=== PATIENT | male | born 1975 | race Hispanic/Latino ===

== ENCOUNTER → 2024-08-20 | Day surgery (SDC) | payer OTHER ==
[~2024-08-20] MED LIST: KETAMINE 50MG/5ML SYR ONE; LIDOCAINE HCL 2% LOCAL INJ 5 ML SDV VIAL INJ ONE; PROPOFOL IV EMULSION 10 MG/ML 20 ML VIAL ONE; PROPOFOL IV EMULSION 50 ML IV ONE; TRICOR145 MG PO
[2024-08-20] MEDS: LACTATED RINGER'S 1,000 ML ONE (07:03)
[2024-08-20 09:00] VITALS: TEMP 97.4
[2024-08-20 09:15] VITALS: BP 134/83; PULSE 74; RESP 16; O2SAT 96
== END | disposition home or self-care (01) ==
LOC: OR 06:34
PROVIDERS: ATTEND Internal Medicine Gastroenterology
DX: Z12.11 Encounter for screening for malignant neoplasm of colon (principal); D12.2 Benign neoplasm of ascending colon; K63.89 Other specified diseases of intestine; K64.8 Other hemorrhoids; E78.5 Hyperlipidemia, unspecified; F17.200 Nicotine dependence, unspecified, uncomplicated; Z01.810 Encounter for preprocedural cardiovascular examination; Z79.899 Other long term (current) drug therapy; Z68.37 Body mass index [BMI] 37.0-37.9, adult
CPT/HCPCS: 45385; 93005; J2003; J2704 ×2; J7121; 45378